=== PATIENT | female | born 2000 | race Caucasian/White ===

== ENCOUNTER 2024-08-09 17:43 | Emergency (ER) | payer OTHER, SELFPAY ==
[2024-08-09 17:45] VITALS: BP 104/67
[2024-08-09 18:00] VITALS: BP 103/62
--- NOTE | 2024-08-09 18:00 | ED.GENMED ---
History of Present Illness
General
Chief Complaint: Crisis Evaluation
Time Seen by Provider: 08/09/24 17:59
History of Present Illness
History of Present Illness:
TIME OF INITIAL ENCOUNTER: 6 PM
HPI: The patient has a complex mental health history. At , she had a malignant tumor and had [employer] shunt. She has had meningitis as a teenager. She has been diagnosed with conversion disorder, schizoaffective disorder, pseudoseizures. A couple
of months ago she had worsening mental health and was hospitalized for 2 months at [facility] up until yesterday. At home, she reached for [employer] (mother also states he was a butter knife) and they took her back to [facility] yesterday evening.
She stayed there until this morning and she was brought home again and again reached for [employer] and parents do not know what else to do for her but they feel that she is unsafe at home. Patient is very limited historian. Mother states that .
[facility] made multiple medication changes.
EXAM:
GENERAL: Flat depressed affect
HEENT: Moist oral mucosa, spontaneous nystagmus noted, strabismus
CARDIOVASCULAR: No murmurs, normal heart rate, regular rhythm, No chest wall tenderness
PULMONARY: No respiratory distress, breath sounds are clear and equal
ABDOMEN: Soft with no peritoneal signs, no tenderness
NEUROLOGIC: Excellent strength all extremities, no coordination deficits
PSYCHIATRIC: Limited insight and judgment, she appears anxious
EXTREMITIES: Nontender, no edema, moves all extremities equally
SKIN: No rash, no lesions
NUMBER AND COMPLEXITY OF PROBLEMS ADDRESSED AT THE ENCOUNTER
� Chronic conditions affecting care: Has [employer] shunt, 'pseudoseizures', anxiety/depression, conversion disorder
� Acute Exacerbation and/or Progression of Chronic Illness: This is an acute exacerbation of a chronic problem
� Differential Diagnosis includes: Schizoaffective disorder, psychosis,
AMOUNT AND/OR COMPLEXITY OF DATA TO BE REVIEWED AND ANALYZED
� I performed an independent evaluation of and my interpretation is:
EKG:
CT:
X-rays:
Laboratory Studies:
Other:
� Review of other/old records: I reviewed CAT scan report from June 2023 that showed slitlike lateral ventricles that were stable with shunt catheters in place
� Clinical information was obtained by an independent historian: I spoke to parents at bedside
� Prescriptions/Medications Considered but not given:
� Further testing considered but not performed:
RISK OF COMPLICATIONS AND/OR MORBIDITY OR MORTALITY OF PATIENT MANAGEMENT
� Social determinants of health affecting care: The patient had been staying in a prison in the past
� Discussion with other providers: Spoke to crisis at around 6:30 PM and have asked for consultation
� Escalation of care including admission/observation vs risk of discharge considered: I have ordered her evening meds including propranolol and Zyprexa.
ANY OTHER UPDATES:
Past History
Past History
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
ED Past Surgical History: Other ([employer] shunt, brain tumor resection as an , strabismus surgery, )
Social History
Tobacco: Non-smoker
Alcohol: None
Drug: None
Personal: Single
Living: other ([facility] [place])
Employment: Student
Family History
Family History: Other
Phy Exam
Physical Exam
Physical Exam:
See HPI
Course
Orders/Labs/Results
Orders:
Orders
08/09/24 18:20
1:1 Observation - Suicide/ Violent Behavior As Directed
Crisis Consult Urgent
Reason for Consult: SI
08/09/24 20:00
Propranolol [Inderal] 10 mg PO BID
Propranolol [Inderal] 10 mg PO BID
08/09/24 22:00
Olanzapine [Zyprexa] 10 mg PO HS
Olanzapine [Zyprexa] 10 mg PO HS
Propranolol [Inderal] 10 mg PO TID
Propranolol [Inderal] 10 mg PO TID
08/10/24 02:43
Test Result ONCE
08/10/24 02:47
Fentanyl, Urine Urgent
HCG, Urine Qualitative Screen Urgent
Date Specimen was Collected: 08/10/24
Time Specimen was Collected: 02:43
Urine Drug Abuse Screen Urgent
Date Specimen was Collected: 08/10/24
Time Specimen was Collected: 02:43
08/10/24 08:00
Desvenlafaxine Succinate [Pristiq] 50 mg PO DAILY
Lamotrigine [Lamictal] 50 mg PO DAILY
Naltrexone HCl [Revia] 50 mg PO DAILY
Abnormal Lab Results
08/10/24
02:47
U Benzodiazepines Scrn Positive H
(Negative)
Vital Signs
Initial and Last Documented VS:
Initial Vital Signs
Temp Pulse Resp BP Pulse Ox
36.3 C 80 16 104/67 96
08/09/24 17:45 08/09/24 17:45 08/09/24 17:45 08/09/24 17:45 08/09/24 17:45
Last Documented Vital Signs
Temp Pulse Resp BP Pulse Ox
36.7 C 75 16 113/73 97
08/10/24 07:42 08/10/24 07:42 08/10/24 07:42 08/10/24 07:42 08/10/24 07:42
*Critical Care Note
Total Time (30-74mins, 75-104mins- exclusive of procedures): Not Applicable
ED Attending Note
-
Portions of this chart may have been created with voice recognition software.� Occasional wrong word or��sound alike� substitutions may have occurred due to the inherent limitations of voice recognition software.
Discharge Plan
Departure
Patient Disposition: Psych Facility
Date of Disposition: 08/09/24
Time of Disposition: 19:32
Discharge Problem:
Schizoaffective disorder
Prescriptions:
No Action
sertraline 50 MG tablet
150 mg PO DAILY
polyethylene glycol 3350 [Miralax] 17 gram Powder In Packet
8.5 g PO Q48H
lorazepam 0.5 mg tablet
0.5 mg PO Q8H PRN (Reason: ANXIETY)
Patient Comments:
07/16/2022: LAST FILLED 05/12/22, 30 TABS FOR 10 DAYS FROM [facility]
calcium carbonate [Calcium Antacid] 200 mg calcium (500 mg) Tablet,Chewable
200 mg PO TID PRN (Reason: HEARTBURN)
docusate sodium 100 mg Capsule
100 mg PO BID PRN (Reason: CONSTIPATION)
oxcarbazepine 600 mg tablet
600 mg PO BID
azelastine 137 mcg (0.1 %) aerosol,spray
2 spray INTRANASAL TID
lysine [L-Lysine] 500 mg Tablet
500 mg PO BID
Artificial Tears (PF) Dropperette
2 drp BOTH EYES BID
Saccharomyces boulardii [Probiotic (S.boulardii)] 250 mg capsule
250 mg PO BID
multivitamin with folic acid [Tab-A-Shyla] 400 mcg tablet
1 tab PO DAILY
Biotene Dry Mouth Oral Rinse Mouthwash
1 ea mucous membrane 5/D
acetaminophen 325 mg Tablet
650 mg PO Q4HPRN PRN (Reason: Mild Pain / Temp > 101) Qty: 0 0RF
quetiapine 100 mg Tablet
200 mg PO HS Qty: 0 0RF
mirtazapine 30 mg Tablet
30 mg PO HS Qty: 0 0RF
guaifenesin [Mucinex] 600 mg Tablet Extended Release 12hr
1,200 mg PO Q12 Qty: 0 0RF
quetiapine 25 mg Tablet
50 mg PO BID Qty: 0 0RF
sulfamethoxazole-trimethoprim 800-160 mg Tablet
1 tab PO BID 2 Days Qty: 0 0RF
ondansetron 4 mg Tablet,Disintegrating
4 mg PO Q8HPRN PRN (Reason: n/v) Qty: 0 0RF
loratadine 10 mg Tablet
10 mg PO DAILY Qty: 0 0RF
Interventions
Interventions:
*Risk Screen - Suicide Last Done: 08/09/24 18:00
*General Assessment Last Done: 08/09/24 18:00
*Neglect/Abuse Screening Last Done: 08/09/24 18:00
ED- Fall Risk Assessment Last Done: 08/09/24 18:00
*ED COVID-19 Vaccine History Last Done: 08/10/24 00:31
*Nursing Disposition Last Done: 08/10/24 00:31
ED-Psychological Assessment Last Done: 08/09/24 18:00
Discharge Date and Time
Discharge Date/Time: 08/10/24 11:24
Print Language: SPANISH
--- NOTE | 2024-08-09 18:34 | EDRN ---
Per Cedric Sebastian, pt is okay to be monitored by her parents, no 1:1 needed. Pt calm and cooperative.
[2024-08-09 19:00] VITALS: BP 95/57
--- NOTE | 2024-08-09 19:47 | EDRN ---
Report received, spoke with patient and mom as well as crisis, crisis will be working on a bed search for patient, patient was moved into a crisis room for safer monitoring, will continue to monitor, belongings bagged and given to security.
[2024-08-09] MEDS: ZYPREXA 10 MG PO (21:35)
--- NOTE | 2024-08-09 22:34 | EDRN ---
Patient is resting with security at bedside, will continue to monitor, safe environment maintained.
--- NOTE | 2024-08-10 00:22 | EDRN ---
Patient is sleeping when observed, 1:1 remains in progress, will continue to monitor, safe environment maintained
--- NOTE | 2024-08-10 02:12 | DOWNTIME ---
There was a [employer] Downtime on 08/10/2024 from 0100 to 08/10/2024 at 0205 . Downtime documentation of patient's care, including medication administrations, has been reconciled in the electronic record per guidelines. Refer to the
patient's paper chart under the miscellaneous tab to see printed paper medication records and downtime forms.
[2024-08-10 03:06] LABS: HCG, Urine Qualitative Screen Negative
[2024-08-10 03:22] LABS: Amphetamines Negative (Negative); Barbiturates Negative (Negative); Benzodiazepines Positive (Negative); Buprenorphine Negative (Negative); Cocaine Negative (Negative); Marijuana Negative (Negative); Methadone Negative (Negative); Methamphetamines Negative (Negative); Opiates Negative (Negative); Phencyclidine Negative (Negative); Tricyclic Antidepressants Negative (Negative)
[2024-08-10 03:42] LABS: Fentanyl, Urine Negative (Negative)
[2024-08-10 07:42] VITALS: BP 113/73
== END 2024-08-10 11:24 ==
LOC: EMR 17:43
PROVIDERS: Student in an Organized Health Care Education/Training Program; EMERGENCY PHYSICIAN Emergency Medicine
DX: F25.9 Schizoaffective disorder, unspecified (principal); Z86.61 Personal history of infections of the central nervous system; Z98.2 Presence of cerebrospinal fluid drainage device; F41.9 Anxiety disorder, unspecified; F32.A Depression, unspecified; F44.5 Conversion disorder with seizures or convulsions
CPT/HCPCS: 99285; 80306; 80307; 81025